=== PATIENT | female | born 2000 | race Caucasian/White ===

== ENCOUNTER 2022-09-29 09:38 | Emergency (ER) | payer BC, SELFPAY ==
--- NOTE | ~2022-09-29 | CT_ITS ---
EXAMINATION: CT abdomen pelvis w con DATE: 09/29/2022 11:47 INDICATION: Nausea and vomiting. Epigastric pain. TECHNIQUE: Computed tomography (CT) of the abdomen and pelvis was performed with 100 cc Omnipaque 350 intravenous contrast. The dose-length product was 211.71 mGy-cm. Automated exposure control and iter ative reconstruction technique were employed. COMPARISON: None. FINDINGS: Lung bases are unremarkable. Heart size normal. No significant pleural or pericardial effus ion. No significant vascular abnormality. No lymphadenopathy. Nonobstructive bowel pattern. No free air or free fluid. The liver, spleen, pancreas, adrenal glands and kidneys are unremarkable. Gallbladder is present. Retroaortic left renal vein. No acute bone or joint abnormality. Small bone island left fem oral head. Normal appendix. IMPRESSION: 1. No acute abdominal abnormality. Reviewed, dictated and finalized at location L.
[2022-09-29 09:50] VITALS: BP 107/81; PULSE 60; RESP 14; TEMP 37.6; O2SAT 99
--- NOTE | 2022-09-29 09:56 | ECG_ITS ---
Measurements Intervals [place] Rate: 52 P: 31 SC: 141 QRS: 66 QRSD: 93 T: 72 QT: 478 QTc: 446 Interpretive Statements SINUS BRADYCARDIA BORDERLINE T WAVE ABNORMALITY- ANTERIOR LEADS BORDERLINE ECG NO PREVIOUS ECG AVAILABLE FOR COMPARISON Electronically Signed On 09-29-2022 10:57:00 CDT by Clyde De La Garza D.O.
[2022-09-29] MEDS: ONDANSETRON INJ 4 MG/2 ML VIAL IV PUSH (10:12)
[2022-09-29] MEDS: SODIUM CHLORIDE 0.9% IV 1,000 ML 999 ML IV CONT (10:13)
[2022-09-29 10:22] LABS: Basophils Absolute Auto 0.01 K/mm3 (0.00-0.10); Basophils Percent Auto 0.1 % (0.0-1.0); Hemoglobin 14.2 g/dL (12.0-15.0); Immature Granulocyte Absolute 0.04 K/mm3 (0.00-0.00); Immature Granulocyte Percent A 0.4 % (0.0-0.0); Lymphocytes Absolute Auto 0.22 K/mm3 (1.10-4.50); Lymphocytes Percent Auto 2.1 % (18.0-42.0); Mean Corpuscular HGB Conc 34.6 g/dL (32.0-36.0); Mean Corpuscular Hemoglobin 30.3 pg (27.0-31.0); Mean Corpuscular Volume 87.6 fL (78.0-102.0); Mean Platelet Volume 11.7 fl (9.2-11.8); Monocytes Absolute Auto 0.31 K/mm3 (0.10-0.90); Monocytes Percent Auto 2.9 % (2.0-11.0); Neutrophils Percent Auto 94.5 % (50.0-70.0); Platelet Count Result 176 K/mm3 (150-420); Red Blood Count 4.68 M/mm3 (4.20-5.40); Red Cell Distribution Width 11.8 % (11.6-14.4); White Blood Count 10.6 K/mm3 (4.8-10.8)
[2022-09-29 10:38] LABS: Alanine Aminotransferase 18 U/L (14-59); Albumin Level 4.5 g/dL (3.4-5.0); Alkaline Phosphatase 64 U/L (50-130); Anion Gap 14 mmol/L (8-16); Aspartate Amino Transferase 18 U/L (15-37); Blood Urea Nitrogen 15 mg/dL (7-18); Calcium 9.1 mg/dL (8.5-10.1); Carbon Dioxide 24 mmol/L (21-32); Chloride 101 mmol/L (98-108); Estimated CRCL calculation 80 ml/min; Estimated Glomerular Filt Rate > 60; Glucose 153 mg/dL (70-99); Lipase 9 U/L (16-77); Osmolality Calculated 291 mOsm/kg (285-295); Potassium 3.7 mmol/L (3.5-5.1); Sodium 139 mmol/L (136-145)
[2022-09-29 10:43] LABS: Lactic Acid Reflex 1.6 mmol/L (0.4-2.0)
[2022-09-29 10:50] VITALS: BP 118/73; PULSE 60; RESP 14; TEMP 36.9; O2SAT 98
[2022-09-29 11:01] LABS: SPREG INTERNAL CONTROL Positive; Serum Qual hCG Negative
[2022-09-29 11:38] LABS: Appearance Urine Clear (Clear); Bilirubin Urine Negative (Negative); Blood Urine 1+ (Negative); Color Urine Yellow (Yellow); Glucose Urine UA Negative (Negative); Ketones Urine 2+ (Negative); Leukocyte Esterase Ur Negative LEU/UL (Negative); Nitrate Urine Negative (Negative); Protein Urine Trace (Negative); Urobilinogen Urine 0.2 mg/dL (0.2-1.0)
[2022-09-29 11:45] LABS: Add Urine Microscopic? YES; Bacteria Urine Trace /hpf; Squamous Epithelial Cell Urine Rare /hpf (Few); WBC Urine None seen /hpf (0-3)
[2022-09-29 12:41] VITALS: BP 88/54; PULSE 60; TEMP 36.8; O2SAT 100
--- NOTE | 2022-09-29 12:41 | ED.NAVMDI ---
HPI - Nausea/Vomiting/Diarrhea General Chief complaint: Nausea/Vomiting/Diarrhea Stated complaint: nausa/vomiting Time Seen by Provider: 09/29/22 09:41 Source: patient Mode of arrival: ambulatory Limitations: no limitations History of Present Illness HPI Narrative: this is a 21-year-old female with some 3 day history of nausea vomiting with episode of diarrhea with crampy abdominal pain with no fever chills no shortness of breath no chest pain no flank pain no dysuria or hematuria. MD elicited complaint: nausea, vomiting, diarrhea and abdominal pain Related Data Home Medications Medication Instructions Recorded Confirmed No Home Medications 09/29/22 09/29/22 Allergies Allergy/AdvReac Type Severity Reaction Status Date / Time No Known Allergies Allergy Verified 09/29/22 09:49 Review of Systems Review of Systems: All systems reviewed & are unremarkable except as noted in HPI and below PMFSH Past Medical History Medical History Patient denies medical problems Exam Const: General: healthy appearing Nutritional Appearance: well nourished Orientation/consciousness: patient oriented x3 Limitations: no limitations HENMT: Head: normal to inspection Face and sinus: normal facial exam Eyes: Conjunctivae: conjunctivae normal Pupils: Equal, round and reactive pupils present Neck: Neck: normal visual inspection Chest: Chest palpation & inspection: normal inspection of the chest Resp: Effort & Inspection: normal respiratory effort Auscultation: clear to auscultation bilaterally Cardio: Rate: regular rate Rhythm: regular rhythm GI: GI Palp: Yes Soft to palpation Auscultation: normal bowel sounds : General: Yes bladder normal to palpation Urinary Catheter: Urinary Catheter: patent and draining Back/Spine/Pelvis: Back: no CVA tenderness Skin: General skin exam: normal color Rashes: no rashes Neuro: General: patient oriented x3 and moves all extremities Extrem: General: normal to inspection Psych: Mental Status: mental status grossly normal Course Course Emergency Course: labs reviewed with patient, CT scan also reviewed urinalysis reviewed with patient no acute findings. Patient did receive IV fluids and IV Zofran. Vital Signs Vital signs: Vital Signs Temperature 37.6 C 09/29/22 09:50 Pulse Rate 60 09/29/22 09:50 Respiratory Rate 14 09/29/22 09:50 Blood Pressure 107/81 05/25/23 09:50 Pulse Oximetry 99 09/29/22 09:50 Oxygen Delivery Room Air 09/29/22 09:50 Temperature 36.9 C 09/29/22 10:50 Pulse Rate 60 09/29/22 10:50 Respiratory Rate 14 09/29/22 10:50 Blood Pressure 118/73 09/29/22 10:50 Pulse Oximetry 98 09/29/22 10:50 Oxygen Delivery Room Air 09/29/22 10:50 MDM - Nausea/Vomiting/Diarrhea Lab Data 09/29/22 10:17 09/29/22 10:16 Labs: Lab Results 09/29/22 09/29/22 09/29/22 Range/Units 10:16 10:17 11:30 WBC 10.6 (4.8-10.8) K/mm3 RBC 4.68 (4.20-5.40) M/mm3 Hgb 14.2 (12.0-15.0) g/dL Hct 41.0 (35.0-49.0) % MCV 87.6 (78.0-102.0) fL MCH 30.3 (27.0-31.0) pg MCHC 34.6 (32.0-36.0) g/dL RDW 11.8 (11.6-14.4) % Plt Count 176 (150-420) K/mm3 MPV 11.7 (9.2-11.8) fl Immature Gran % (Auto) 0.4 H (0.0-0.0) % Neut % (Auto) 94.5 H (50.0-70.0) % Lymph % (Auto) 2.1 L (18.0-42.0) % [place] % (Auto) 2.9 (2.0-11.0) % Eos % (Auto) 0.0 L (1.0-6.0) % Baso % (Auto) 0.1 (0.0-1.0) % Lymph # (Auto) 0.22 L (1.10-4.50) K/mm3 [place] # (Auto) 0.31 (0.10-0.90) K/mm3 Eos # (Auto) 0.00 L (0.02-0.50) K/mm3 Baso # (Auto) 0.01 (0.00-0.10) K/mm3 Abs Immat Gran (auto) 0.04 H (0.00-0.00) K/mm3 Absolute Neuts (auto) 10.0 H (1.7-7.2) K/mm3 Absolute Nucleated RBC 0.00 (0.00-0.00) K/mm3 Nucleated RBC % 0.0 (0-0.0) % Sodium 139 (136-145) mmol/L Potassium 3.7
[2022-09-29 12:52] VITALS: BP 91/59
== END 2022-09-29 12:58 | disposition home or self-care (01) ==
PROVIDERS: Emergency Provider Emergency Medicine
DX: K52.9 Noninfective gastroenteritis and colitis, unspecified (principal)
CPT/HCPCS: 36415; 74177; 80053; 81001; 83605; 83690; 84703; 85025; 93005; 96361; 96365; 96375; 99284; J0131; J2405; J7030; Q9967